=== PATIENT | female | born 1995 ===

== ENCOUNTER 2017-02-21 02:23 | Emergency (ER) | payer BC ==
[~2017-02-21] VITALS: Ht 170.2 cm; Wt 60.5 kg
[2017-02-21 02:34] VITALS: Ht 170.2 cm; Wt 60.5 kg
--- NOTE | 2017-02-21 02:39 | ERA ---
ER Documentation Chief Complaint Date/Time DATE: 02/21/17 TIME: 02:38 Chief Complaint Anxious HPI The patient is a 21-year-old female, presenting with acute anxiety and dizziness after eating edible marijuana about 11:30 PM. She denies having eaten edible marijuana previously, denies fever, chills, neck pain, chest pain, abdominal pain, vomiting, dysuria, diarrhea. She does not smoke, drinks does illicit drugs Past medical history: Asthma Past surgical history: None ROS All systems reviewed and are negative except as per history of present illness. Allergies Allergies: Coded Allergies: Unknown: Unable to obtain (Unverified , 02/21/17) unk Physical Exam Vitals Vital Signs Date Time Temp Pulse Resp B/P Pulse Ox O2 Delivery O2 Flow Rate FiO2 02/21/17 02:34 98.4 125 18 114/78 100 Physical Exam Const: No acute distress.Very anxious Head: Atraumatic. Eyes: Normal Conjunctiva. ENT: Normal External Ears, Nose and Mouth. Neck: Full range of motion. No meningismus. Resp: Clear to auscultation bilaterally. Cardio: Regular Tachycardic Abd: Soft, non distended, normal bowel sounds, non tender. Skin: No petechiae or rashes. Back: No midline or flank tenderness. Ext: No cyanosis, or edema. Neur: Awake and alert. No focal deficit Psych: Normal Mood and Affect. Results 24 hrs Laboratory Tests Test 02/21/17 04:30 White Blood Count Pending Red Blood Count Pending Hemoglobin Pending Hematocrit Pending Mean Corpuscular Volume Pending Mean Corpuscular Hemoglobin Pending Mean Corpuscular Hemoglobin Concent Pending Red Cell Distribution Width Pending Platelet Count Pending Mean Platelet Volume Pending Current Medications Medications (Trade) Dose Ordered Sig/Tenisha Route PRN Reason Start Time Stop Time Status Last Admin Dose Admin Sodium Chloride 1,000 ml @ 1,000 mls/hr Q1H STAT IV 02/21/17 02:42 02/21/17 03:41 DC 02/21/17 02:42 Sodium Chloride (NS) 1,000 ml @ 1,000 mls/hr Q1H ONCE IV 02/21/17 03:00 02/21/17 03:59 DC Procedures/MDM EKG: Read by emergency physician Rate/Rhythm: Sinus tachycardia 121 beats/min QRS, ST, T-waves: No ST elevation, no T inversion, Nonspecific T abnormality Impression: Abnormal EKG MEDICAL MAKING DECISION: The patient is a 20-year-old female, presenting with acute anxiety attack, acute dehydration, substance abuse. She was treated with 2 L normal saline for acute dehydration with good response. Departure Diagnosis: Primary Impression: Anxiety Additional Impressions: Marijuana abuse Dehydration Condition: Good Comments I discussed the findings with the patient. I advised the patient to follow-up with the primary physician in about 1-2 days, sooner if needed and return if any concern. HERMELINDA NAVARRO MD Feb 21, 2017 02:39
[2017-02-21] MEDS ORDERED: SOD CHLORIDE 0.9% 1,000 ML IV STA (02:42)
[2017-02-21] MEDS ORDERED: SOD CHLORIDE 0.9% 1,000 ML IV ONE (03:00)
[2017-02-21 08:17] VITALS: BP 123/56; PULSE 79; RESP 18; TEMP 98
== END 2017-02-21 08:21 | disposition home or self-care (01) ==
LOC: E/R 02:23
DX: F41.9 Anxiety disorder, unspecified (principal); R40.2242 Coma scale, best verbal response, confused conversation, at arrival to emergency department; F12.10 Cannabis abuse, uncomplicated; E86.0 Dehydration; J45.909 Unspecified asthma, uncomplicated
CPT/HCPCS: 36415; 93005; 99284; J7030